=== PATIENT | female | born 1995 | race Two or more races ===

== ENCOUNTER 2024-11-29 15:44 | Emergency (ER) | payer MEDICAID, SELFPAY ==
[2024-11-29 15:45] VITALS: BMI 18.3
[2024-11-29 16:18] VITALS: BP 153/100; PULSE 113; RESP 20; TEMP 36.8
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
== END 2024-11-29 18:35 | disposition home or self-care (01) ==
PROVIDERS: Emergency Provider Emergency Medicine; PCP Family Medicine
DX: S13.4XXA Sprain of ligaments of cervical spine, initial encounter (principal); V89.2XXA Person injured in unspecified motor-vehicle accident, traffic, initial encounter
CPT/HCPCS: 72040; 99284